=== PATIENT | female | born 1970 | race African-American/Black ===

== ENCOUNTER → 2020-02-01 | Outpatient (CLI) | payer OTHER ==
[~2020-02-01] MED LIST: CLARITIN10 M2 PO; DECONGESTANT NA15 ML NS; DECONGESTANT30 MG PO; FLONASE; HYDROCHLOROTHIA25 M1 PO; MONISTAT 745 GM VG; ROBITUSSIN100 MG/5 M
== END ==
LOC: LAB 08:11
DX: Z20.828 Contact with and (suspected) exposure to other viral communicable diseases (principal)